=== PATIENT | male | born 1945 | race Caucasian/White ===

== ENCOUNTER → 2018-03-20 10:41 | Outpatient (CLI) | payer MEDICARE, SELFPAY ==
[2018-03-20 12:30] LABS: PSA,Total- Diagnostic 4.82 ng/mL (0.0-4.0)
== END ==
PROVIDERS: Family Provider Internal Medicine; PCP Internal Medicine; Visit Provider Urology
DX: C61 Malignant neoplasm of prostate (principal)
CPT/HCPCS: 36415; 84153

== ENCOUNTER → 2018-09-19 10:58 | Outpatient (CLI) | payer MEDICARE, SELFPAY ==
[2018-09-19 12:06] LABS: PSA,Total- Diagnostic 5.15 ng/mL (0.0-4.0)
--- OUTSIDE RECORDS SUMMARY | 2018-12-21 19:50 | XMS RPT_ITS ---
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 Subjective Nathan Barraza was here for follow up. His blood pressure was elevated today. Lipids needed rechecked. Chronic pains were controlled. PAIN ASSESSMENT DOCUMENTATION TOOL (PADT TM) Analgesia 1. What was your pain level on average during the past week? 0 is no pain. 10 is as bad as it can be. 5 2. What was your pain level at its worst during the past week? 5 3. What percentage of your pain has been relieved during the past week? 80+% 4. Is the amount of pain relief you are now obtaining from your current pain reliever(s) enough to make a real difference in your life? Yes. 5. Query to clinician: Is patient 's pain relief clinically significant? Yes. Activities of Daily Living since the patient's last assessment 1. Physical functioning. same 2. Family relationships. same 3. Social relationships. same 4. Mood. same 5. Sleep patterns. same 6. Overall functioning. same Adverse Events 1. Is patient experiencing any side effects from current pain reliever? no a) Nausea None b) Vomiting None c) Constipation None d) Itching None e) Mental cloudiness None f) Sweating None g) Fatigue None h) Drowsiness None i) Other __ 2. Patient's overall severity of side effects? None Potential Aberrant Drug Related Behavior: no Specify: __ Assessment: Is your overall impression that this patient is benefiting (benefits outweigh side effects) from opioid therapy? Yes. Plan: Continue present regimen. Yes. Reviewed risks. Adjust dose of present analgesic. no Switch analgesic. no Add/adjust concomitant therapy.no Discontinue/taper off opioid therapy. Discussed. We agreed to continue. Comments: __ Copyright [employer] c2003 All rights reserved. ACTIVE PROBLEM LIST Essential Hypertension Hyperlipidemia Actinic Keratosis Malignant Neoplasm of Rectum (Hcc) Bph With Obstruction/Lower Urinary Tract Symptoms Malignant Neoplasm of Prostate (Hcc) Anal Pain Esophagitis, Unspecified Chronic Pain Chronic Diarrhea Elevated Prostate Specific Antigen (Psa) Pain in Right Hip Review of Systems Constitutional: Negative. Respiratory: Negative. Cardiovascular: Negative. Gastrointestinal: Negative. Genitourinary: Negative. Objective BP 155/77 (BP Site: Left Arm, BP Position: Sitting, BP Cuff Size: Regular Adult) Pulse 72 Temp 36.2 ?C (97.1 ?F) (Left Tympanic) Resp 12 Wt 71.7 kg (158 lb) BMI 25.12 kg/m? Physical Exam Constitutional: No distress. Cardiovascular: Normal heart sounds. Pulmonary/Chest: Breath sounds normal. Abdominal: Soft. Musculoskeletal: Lumbar back: He exhibits decreased range of motion and tenderness. Skin: He is not diaphoretic. Assessment and Plan 1. Other chronic pain - ICD9: 338.29, ICD10: G89.29 Refilled. - TRAMADOL 50 MG TABLET 2. Pain in right hip - ICD9: 719.45, ICD10: M25.551 - TRAMADOL 50 MG TABLET 3. Anal pain - ICD9: 569.42, ICD10: K62.89 Refilled. - TRAMADOL 50 MG TABLET 4. Essential hypertension - ICD9: 401.9, ICD10: I10 - suboptimal control - Continue current medication(s) - Recheck in 2 weeks, sooner should new symptoms or problems arise. - Reviewed risks of HTN and principles of treatment - Goal of BP <130/80 - HYDROCHLOROTHIAZIDE 25 MG TABLET - AMLODIPINE 10 MG TABLET 5. Hyperlipidemia, unspecified hyperlipidemia type - ICD9: 272.4, ICD10: E78.5 - to be determined upon return of lab results - Continue current medication. - ATORVASTATIN 10 MG TABLET Joel Smith MD CNOV Observed: 10/19/2018 Status: COMPLETED Source: [place] 3:40 PM [facility] REPOSITORY Office Visit (INTMWS) NATHAN BARRAZA ([id number]) 1945 M Date Time Provider Department 10/19/18 3:40 PM JOEL SMITH INTMWS During your visit today, we recorded the following information about you: Temperature Pulse Respiration Blood pressure 97.1 degrees 72/minute 12/minute 155/77 Weight 71.7 kg Joel Smith MD 10/19/2018 4:50 PM Signed This note was created using NoteWriter. Subjective Nathan Barraza was here for follow up. His blood pressure was elevated today. Lipids needed rechecked. Chronic pains were controlled. PAIN ASSESSMENT DOCUMENTATION TOOL (PADT TM) Analgesia 1. What was your pain level on average during the past week? 0 is no pain. 10 is as bad as it can be. 5 2. What was your pain level at its worst during the past week? 5 3. What percentage of your pain has been relieved during the past week? 80+% 4. Is the amount of pain relief you are now obtaining from your current pain reliever(s) enough to make a real difference in your life? Yes. 5. Query to clinician: Is patient 's pain relief clinically significant? Yes. Activities of Daily Living since the patient's last assessment 1. Physical functioning. same 2. Family relationships. same 3. Social relationships. same 4. Mood. same 5. Sleep patterns. same 6. Overall functioning. same Adverse Events 1. Is patient experiencing any side effects from current pain reliever? no a) Nausea None b) Vomiting None c) Constipation None d) Itching None e) Mental cloudiness None f) Sweating None g) Fatigue None h) Drowsiness None i) Other __ 2. Patient's overall severity of side effects? None Potential Aberrant Drug Related Behavior: no Specify: __ Assessment: Is your overall impression that this patient is benefiting (benefits outweigh side effects) from opioid therapy? Yes. Plan: Continue present regimen. Yes. Reviewed risks. Adjust dose of present analgesic. no Switch analgesic. no Add/adjust concomitant therapy.no Discontinue/taper off opioid therapy. Discussed. We agreed to continue. Comments: __ Copyright [employer] c2003 All rights reserved. ACTIVE PROBLEM LIST Essential Hypertension Hyperlipidemia Actinic Keratosis Malignant Neoplasm of Rectum (Hcc) Bph With Obstruction/Lower Urinary Tract Symptoms Malignant Neoplasm of Prostate (Hcc) Anal Pain Esophagitis, Unspecified Chronic Pain Chronic Diarrhea Elevated Prostate Specific Antigen (Psa) Pain in Right Hip Review of Systems Constitutional: Negative. Respiratory: Negative. Cardiovascular: Negative. Gastrointestinal: Negative. Genitourinary: Negative. Objective BP 155/77 (BP Site: Left Arm, BP Position: Sitting, BP Cuff Size: Regular Adult) Pulse 72 Temp 36.2 ?C (97.1 ?F) (Left Tympanic) Resp 12 Wt 71.7 kg (158 lb) BMI 25.12 kg/m? Physical Exam Constitutional: No distress. Cardiovascular: Normal heart sounds. Pulmonary/Chest: Breath sounds normal. Abdominal: Soft. Musculoskeletal: Lumbar back: He exhibits decreased range of motion and tenderness. Skin: He is not diaphoretic. Assessment and Plan 1. Other chronic pain - ICD9: 338.29, ICD10: G89.29 Refilled. - TRAMADOL 50 MG TABLET 2. Pain in right hip - ICD9: 719.45, ICD10: M25.551 - TRAMADOL 50 MG TABLET 3. Anal pain - ICD9: 569.42, ICD10: K62.89 Refilled. - TRAMADOL 50 MG TABLET 4. Essential hypertension - ICD9: 401.9, ICD10: I10 - suboptimal control - Continue current medication(s) - Recheck in 2 weeks, sooner should new symptoms or problems arise. - Reviewed risks of HTN and principles of treatment - Goal of BP <130/80 - HYDROCHLOROTHIAZIDE 25 MG TABLET - AMLODIPINE 10 MG TABLET 5. Hyperlipidemia, unspecified hyperlipidemia type - ICD9: 272.4, ICD10: E78.5 - to be determined upon return of lab results - Continue current medication. - ATORVASTATIN 10 MG TABLET Joel Smith MD Referring Provider: SELF [200] Allergies As of Date: 10/19/2018 (No Known Allergies) Date Reviewed: 10/19/2018 Reviewed by: Jacquelyn Ocampo LPN - Fully Assessed Reason for Visit: F/U 6 Month [444] Visit Diagnoses:Other chronic pain [G89.29] Pain in right hip [M25.551] Anal pain [K62.89] Essential hypertension [I10] Hyperlipidemia, unspecified hyperlipidemia type [E78.5] Order(s):traMADol (ULTRAM) 50 mg tabletTake 1 tablet by mouth twice daily as needed for Pain for up to 90 days.Disp: 60 tabletRfl: 2 hydroCHLOROthiazide (HYDRODIURIL, ESIDRIX) 25 mg tabletTake 1 tablet by mouth once daily.Disp: 90 tabletRfl: 1 amLODIPine (NORVASC) 10 mg tabletTake 1 tablet by mouth once daily.Disp: 90 tabletRfl: 1 atorvastatin (LIPITOR) 10 mg tabletTake 1 tablet by mouth daily at bedtime. For cholesterol.Disp: 90 tabletRfl: 1 Prescriptions as of 10/19/2018 Sig: TRAMADOL 50 MG TABLET Take 1 tablet by mouth twice * HYDROCHLOROTHIAZIDE 25 MG TAB* Take 1 tablet by mouth once d* AMLODIPINE 10 MG TABLET Take 1 tablet by mouth once d* ATORVASTATIN 10 MG TABLET Take 1 tablet by mouth daily * Problem List As Of Date 10/19/2018 Noted Resolved Essential hypertension [I10] Hyperlipidemia [E78.5] Elevated prostate specific antigen (PSA) [R97.2* 10/16/2010 Personal history of other malignant neoplasm of*INVALID FOR*03/26/2011 SKIN TAGS AXILLARY [Q82.8] INVALID FOR*03/26/2011 PROSTATITIS RECURRENT [N41.9] INVALID FOR*03/26/2011 HYPERGLYCEMIA [R79.89] INVALID FOR*02/07/2014 OVERWEIGHT [E66.9] INVALID FOR*03/26/2011 Unspecified hypertrophic and atrophic condition*INVALID FOR*03/26/2011 SOLAR LENTIGENES///DYSCHROMIA OTHER [L81.9] INVALID FOR*03/26/2011 Actinic keratosis [L57.0] INVALID FOR* Actinic keratosis [L57.0] INVALID FOR*03/26/2011 Blood in stool [K92.1] INVALID FOR*10/16/2010 Colon polyps [K63.5] INVALID FOR*10/16/2010 Rectal cancer [C20] INVALID FOR*10/16/2010 Diverticulosis of colon [K57.30] INVALID FOR*03/26/2011 Benign neoplasm of colon [D12.6] INVALID FOR*10/16/2010 Malignant neoplasm of rectum [C20] INVALID FOR* More... Diverticulosis of colon (without mention of hem*INVALID FOR*10/16/2010 Retention of urine, unspecified [R33.9] INVALID FOR*03/26/2011 FB bladder/urethra [T19.1XXA, T19.0XXA] INVALID FOR*12/07/2012 BPH with obstruction/lower urinary tract sympto*INVALID FOR* UTI (lower urinary tract infection) [N39.0] INVALID FOR*03/26/2011 Malignant neoplasm of prostate (HCC) [C61] INVALID FOR* More... Anal pain [K62.89] INVALID FOR* Acute gastritis without mention of hemorrhage [*INVALID FOR*02/07/2014 Esophagitis, unspecified [K20.9] INVALID FOR* Loss of weight [R63.4] INVALID FOR*12/07/2012 Need for prophylactic vaccination with combined*INVALID FOR*12/07/2012 Chronic pain [G89.29] INVALID FOR* Abscess of back, except buttock [L02.212] INVALID FOR*05/06/2016 Chronic diarrhea [K52.9] INVALID FOR* History of rectal cancer [Z85.048] INVALID FOR*12/17/2015 Change in bowel habits [R19.4] INVALID FOR*12/17/2015 Urinary frequency [R35.0] INVALID FOR*10/11/2017 Urinary tract infection without hematuria [N39.*INVALID FOR*10/11/2017 Elevated prostate specific antigen (PSA) [R97.2*INVALID FOR* Pain in right hip [M25.551] INVALID FOR* Prescriptions ordered this encounter Disp Refills Start End TRAMADOL 50 MG TABLET 60 t* 2 10/19/2018 01/17/2019 Class: Print RX Route: ORAL Sig: Take 1 tablet by mouth twice daily as needed for Pain for up to 90 days. HYDROCHLOROTHIAZIDE 25 MG TABLET 90 t* 1 10/19/2018 Route: ORAL Sig: Take 1 tablet by mouth once daily. AMLODIPINE 10 MG TABLET 90 t* 1 10/19/2018 Route: ORAL Sig: Take 1 tablet by mouth once daily. ATORVASTATIN 10 MG TABLET 90 t* 1 10/19/2018 Route: ORAL Sig: Take 1 tablet by mouth daily at bedtime. For cholesterol. Medications Discontinued During This Encounter traMADol (ULTRAM) 50 mg tablet 60 t* 2 07/26/2018 10/19/2018 Class: Call Rx Route: ORAL Sig: Take 1 tablet by mouth twice daily as needed for Pain for up to 90 days. Disc: Reason for discontinue is not on file. hydroCHLOROthiazide (HYDRODIURIL, ES* 90 t* 1 04/13/2018 10/19/2018 Route: ORAL Sig: Take 1 tablet by mouth once daily. Disc: Reason for discontinue is not on file. amLODIPine (NORVASC) 10 mg tablet 90 t* 1 04/13/2018 10/19/2018 Route: ORAL Sig: Take 1 tablet by mouth once daily. Disc: Reason for discontinue is not on file. atorvastatin (LIPITOR) 10 mg tablet 90 t* 1 04/13/2018 10/19/2018 Route: ORAL Sig: Take 1 tablet by mouth daily at bedtime. For cholesterol. Disc: Reason for discontinue is not on file. Disposition: Return in about 6 months (around 04/18/2019). Follow-up and Disposition History Recorded Encounter Status:Closed by JOEL SMITH MD on 10/19/18 PSA,TOTAL- DIAGNOSTIC Collected: 09/19/2018 Status: F Source: [place] 11:[address] [facility] REPOSITORY TYPE CODE TESTS RESULT OUT OF REFERENCE UNITS RANGE LAB [id number] 0.0-4.0 ng/mL PSA, High DIAGNOSTIC 5.15 Result Comment: This test was performed using the TPSA assay method for the [employer] chemistry system. Values obtained with different assay methods cannot be used interchangably. When changing PSA assays in the course of monitoring a patient, additional sequential testing should be carried out to confirm baseline values. Performed By: #### [id number] #### Meet [facility] [address] [place], [address] QUANT PAIN PANEL, Collected: 04/13/2018 Status: F Source: [place] UR 5:52 PM [facility] REPOSITORY TYPE CODE TESTS RESULT OUT OF REFERENCE UNITS RANGE LAB UQCANN <16 ng/mL <16 Cannabinoid, Urine Result Comment: Tetrahydrocannabinol carboxylic acid (THCA) is a metabolite of ijuwi-9-reohosdhqfwxquqepgaz which is the main active component of marijuana. LAB UQBNZL <24 ng/mL Benzoylecognine, Ur <24 Result Comment: Benzoylecognine is a metabolite of cocaine. LAB UQACMR <5 ng/mL 6-Acetylmorphine, Ur <5 Result Comment: 6-ANDRA (6-monoacetylmorphine, also known as 6-acetylmorphine) is a unique metabolite of heroin. Presence of 6-ANDRA indicates use of heroin. 6-ANDRA is further metabolized to morphine and absence of 6-ANDRA does not rule out the use of heroin. LAB UQAMPH <5 ng/mL Amphetamine, Urine <5 LAB UQMAMP <8 ng/mL Methamphetamine, Ur <8 LAB UQBUPR <20 ng/mL Buprenorphine, Ur <20 LAB UQNBUP <20 ng/mL Norbuprenorphine, Ur <20 Result Comment: Norbuprenorphine is the primary active metabolite of buprenorphine. LAB UQMTHD <16 ng/mL Methadone, Urine <16 LAB UQEDDP <6 ng/mL EDDP, Urine <6 Result Comment: EDDP is a metabolite of methadone. LAB UQTRAM <25 ng/mL High Tramadol, Urine >5208 Result Comment: Presence of tramadol indicates use of a tramadol containing drug (Ultram). Tramadol is metabolized to O-Desmethyltramadol. LAB UQDTRM <20 ng/mL Desmethyltramadol,Ur High >5000 Result Comment: O-Desmethyltramadol is a metabolite of tramadol and its presence indicates use of a tramadol containing drug (Ultram). LAB UQFNTL <6 ng/mL Fentanyl, Urine <6 LAB UQNFTL <6 ng/mL Norfentanyl, Urine <6 Result Comment: Norfentanyl is a metabolite of fentanyl. LAB UQCODE <11 ng/mL Codeine, Urine <11 LAB UQMORP <10 ng/mL Morphine, Urine <10 Result Comment: Morphine is a metabolite of codeine and heroin. LAB UQDCDN <5 ng/mL Dihydrocodeine, Ur <5 LAB UQHCOD <8 ng/mL Hydrocodone, Urine <8 Result Comment: Hydrocodone is a metabolite of dihydrocodeine. LAB UQOXYC <5 ng/mL Oxycodone, Urine <5 LAB UQHMOR <5 ng/mL Hydromorphone, Ur <5 Result Comment: Hydromorphone is a metabolite of hydrocodone. LAB UQOXYM <5 ng/mL Oxymorphone, Urine <5 Result Comment: Oxymorphone is a metabolite of oxycodone. LAB UQCREA 46.8-314.5 mg/dL 85.7 Creatinine, Urine LAB UQPH 4.5-8.0 pH, 7.2 Urine LAB UQSPGR 1.002-1.030 Specific 1.014 [place],Ur LAB UQOXID <200 mg/L 66 Oxidants, Urine LAB SVNI01 <51 mg/L 82 High NITRITES,URINE LAB SVCH01 <50 mg/L <10 CHROMATE,URINE LAB SVSQ01 QUALITY,URINE Specimen quality results within acceptable limits. LAB UQNOTE Note This test is for Medical use only. Result Comment: This test was developed and its performance characteristics determined by [facility]'s [facility] ([facility]). It has not been cleared or approved by the FDA. [facility] is regulated under CLIA as qualified to perform high-complexity testing. This test is used for clinical purposes. It should not be regarded as investigational or for research. Performed By: #### UQNTPP #### [facility] [address] [place], [place] [address] PROGRESS Observed: 04/13/2018 Status: COMPLETED Source: [place] 4:58 PM [facility] REPOSITORY HNO ID: [id number] Author: Joel Smith Service: (none) Author Type: Physician Type: Progress Notes Filed: 04/13/2018 6:38 PM Note Text: This note was created using [employer]. Subjective Nathan Barraza is a 72 year old male here for follow up. His hypertension was controlled. Chronic pain was controlled, with tramadol taken routinely twice a day. He had no adverse effects. He was dealing with stressors from his 's recent diagnosis of a chronic illness. ACTIVE PROBLEM LIST Essential Hypertension Hyperlipidemia Actinic Keratosis Malignant Neoplasm of Rectum (Hcc) Bph With Obstruction/Lower Urinary Tract Symptoms Malignant Neoplasm of Prostate (Hcc) Anal Pain Esophagitis, Unspecified Chronic Pain Chronic Diarrhea Elevated Prostate Specific Antigen (Psa) Pain in Right Hip Current Outpatient Prescriptions: hydroCHLOROthiazide (HYDRODIURIL, ESIDRIX) 25 mg tablet Take 1 tablet by mouth once daily. amLODIPine (NORVASC) 10 mg tablet Take 1 tablet by mouth once daily. [START ON 04/27/2018] traMADol (ULTRAM) 50 mg tablet Take 1 tablet by mouth twice daily as needed for Pain for up to 90 days. atorvastatin (LIPITOR) 10 mg tablet Take 1 tablet by mouth daily at bedtime. For cholesterol. No current facility-administered medications for this visit. Review of Systems Constitutional: Negative. Respiratory: Negative. Cardiovascular: Negative. Gastrointestinal: Positive for abdominal pain and rectal pain. Genitourinary: Negative. Musculoskeletal: Positive for arthralgias. Neurological: Negative. Psychiatric/Behavioral: Negative. Objective BP 137/71 (BP Site: Left Arm, BP Position: Sitting, BP Cuff Size: Regular Adult) Pulse 76 Temp 36.2 ?C (97.1 ?F) (Left Tympanic) Resp 20 Wt 72.6 kg (160 lb) BMI 25.44 kg/m? Physical Exam Constitutional: No distress. Eyes: Conjunctivae are normal. No scleral icterus. Neck: No JVD present. Cardiovascular: Normal rate, regular rhythm and normal heart sounds. No murmur heard. Pulmonary/Chest: Breath sounds normal. Abdominal: There is no tenderness. Musculoskeletal: He exhibits no edema. Neurological: He is alert. Cholesterol, Total (mg/dL) Date Value 04/10/2018 212 04/04/2017 197 HDL Cholesterol (mg/dL) Date Value 04/10/2018 46 04/04/2017 50 LDL Cholesterol (mg/dL) Date Value 04/10/2018 143 04/04/2017 118 Triglyceride (mg/dL) Date Value 04/10/2018 116 04/04/2017 146 CMP: Glucose 110 04/10/2018 BUN 18 04/10/2018 Creatinine 1.02 04/10/2018 Sodium 140 04/10/2018 Potassium 3.6 04/10/2018 Chloride 101 04/10/2018 CO2 28 04/10/2018 Protein, Total 7.1 12/10/2015 Albumin 4.5 12/10/2015 Calcium 9.2 04/10/2018 Assessment and Plan 1. Essential hypertension - ICD9: 401.9, ICD10: I10 (primary diagnosis) - good control - HYDROCHLOROTHIAZIDE 25 MG TABLET - AMLODIPINE 10 MG TABLET 2. Other chronic pain - ICD9: 338.29, ICD10: G89.29 Reviewed. Discussed medication dosage, usage, goals of therapy, and side effects. - TRAMADOL 50 MG TABLET - PAIN PANEL, UR QUANT 3. Pain in right hip - ICD9: 719.45, ICD10: M25.551 See above. - TRAMADOL 50 MG TABLET - PAIN PANEL, UR QUANT 4. Anal pain - ICD9: 569.42, ICD10: K62.89 See above. - TRAMADOL 50 MG TABLET - PAIN PANEL, UR QUANT 5. Hyperlipidemia, unspecified hyperlipidemia type - ICD9: 272.4, ICD10: E78.5 I have used a decision aid to share decision making with the patient about interventions to reduce the risk of coronary events. We estimated the patient's 10-year of atherosclerotic events at 26% and discussed how this risk could be reduced with the use of statins to 16%. After considering the patient's unique circumstances and the pros and cons of the alternatives, we have decided to start statin medication. - ATORVASTATIN 10 MG TABLET - COMP METABOLIC PANEL - HGB A1C - LIPID PANEL BASIC 6. Hyperglycemia - ICD9: 790.29, ICD10: R73.9 Low carb, low fat diet reviewed. - HGB A1C Joel Smith MD CNOV Observed: 04/13/2018 Status: COMPLETED Source: [place] 3:40 PM [facility] REPOSITORY Office Visit (INTMWS) NATHAN BARRAZA ([id number]) 1945 M Date Time Provider Department 04/13/18 3:40 PM JOEL SMITH INTMWS During your visit today, we recorded the following information about you: Temperature Pulse Respiration Blood pressure 97.1 degrees 76/minute 20/minute 137/71 Weight 72.6 kg Joel Smith MD 04/13/2018 6:38 PM Signed This note was created using [employer]. Subjective Nathan Barraza is a 72 year old male here for follow up. His hypertension was controlled. Chronic pain was controlled, with tramadol taken routinely twice a day. He had no adverse effects. He was dealing with stressors from his 's recent diagnosis of a chronic illness. ACTIVE PROBLEM LIST Essential Hypertension Hyperlipidemia Actinic Keratosis Malignant Neoplasm of Rectum (Hcc) Bph With Obstruction/Lower Urinary Tract Symptoms Malignant Neoplasm of Prostate (Hcc) Anal Pain Esophagitis, Unspecified Chronic Pain Chronic Diarrhea Elevated Prostate Specific Antigen (Psa) Pain in Right Hip Current Outpatient Prescriptions: hydroCHLOROthiazide (HYDRODIURIL, ESIDRIX) 25 mg tablet Take 1 tablet by mouth once daily. amLODIPine (NORVASC) 10 mg tablet Take 1 tablet by mouth once daily. [START ON 04/27/2018] traMADol (ULTRAM) 50 mg tablet Take 1 tablet by mouth twice daily as needed for Pain for up to 90 days. atorvastatin (LIPITOR) 10 mg tablet Take 1 tablet by mouth daily at bedtime. For cholesterol. No current facility-administered medications for this visit. Review of Systems Constitutional: Negative. Respiratory: Negative. Cardiovascular: Negative. Gastrointestinal: Positive for abdominal pain and rectal pain. Genitourinary: Negative. Musculoskeletal: Positive for arthralgias. Neurological: Negative. Psychiatric/Behavioral: Negative. Objective BP 137/71 (BP Site: Left Arm, BP Position: Sitting, BP Cuff Size: Regular Adult) Pulse 76 Temp 36.2 ?C (97.1 ?F) (Left Tympanic) Resp 20 Wt 72.6 kg (160 lb) BMI 25.44 kg/m? Physical Exam Constitutional: No distress. Eyes: Conjunctivae are normal. No scleral icterus. Neck: No JVD present. Cardiovascular: Normal rate, regular rhythm and normal heart sounds. No murmur heard. Pulmonary/Chest: Breath sounds normal. Abdominal: There is no tenderness. Musculoskeletal: He exhibits no edema. Neurological: He is alert. Cholesterol, Total (mg/dL) Date Value 04/10/2018 212 04/04/2017 197 HDL Cholesterol (mg/dL) Date Value 04/10/2018 46 04/04/2017 50 LDL Cholesterol (mg/dL) Date Value 04/10/2018 143 04/04/2017 118 Triglyceride (mg/dL) Date Value 04/10/2018 116 04/04/2017 146 CMP: Glucose 110 04/10/2018 BUN 18 04/10/2018 Creatinine 1.02 04/10/2018 Sodium 140 04/10/2018 Potassium 3.6 04/10/2018 Chloride 101 04/10/2018 CO2 28 04/10/2018 Protein, Total 7.1 12/10/2015 Albumin 4.5 12/10/2015 Calcium 9.2 04/10/2018 Assessment and Plan 1. Essential hypertension - ICD9: 401.9, ICD10: I10 (primary diagnosis) - good control - HYDROCHLOROTHIAZIDE 25 MG TABLET - AMLODIPINE 10 MG TABLET 2. Other chronic pain - ICD9: 338.29, ICD10: G89.29 Reviewed. Discussed medication dosage, usage, goals of therapy, and side effects. - TRAMADOL 50 MG TABLET - PAIN PANEL, UR QUANT 3. Pain in right hip - ICD9: 719.45, ICD10: M25.551 See above. - TRAMADOL 50 MG TABLET - PAIN PANEL, UR QUANT 4. Anal pain - ICD9: 569.42, ICD10: K62.89 See above. - TRAMADOL 50 MG TABLET - PAIN PANEL, UR QUANT 5. Hyperlipidemia, unspecified hyperlipidemia type - ICD9: 272.4, ICD10: E78.5 I have used a decision aid to share decision making with the patient about interventions to reduce the risk of coronary events. We estimated the patient's 10-year of atherosclerotic events at 26% and discussed how this risk could be reduced with the use of statins to 16%. After considering the patient's unique circumstances and the pros and cons of the alternatives, we have decided to start statin medication. - ATORVASTATIN 10 MG TABLET - COMP METABOLIC PANEL - HGB A1C - LIPID PANEL BASIC 6. Hyperglycemia - ICD9: 790.29, ICD10: R73.9 Low carb, low fat diet reviewed. - HGB A1C Joel Smith MD Referring Provider: JOEL SMITH [[id number]] Allergies As of Date: 04/13/2018 (No Known Allergies) Date Reviewed: 04/13/2018 Reviewed by: Jacquelyn Ocampo LPN - Fully Assessed Reason for Visit: F/U 6 Month [444] Primary Visit Diagnosis:Essential hypertension [I10] Other Visit Diagnoses:Other chronic pain [G89.29] Pain in right hip [M25.551] Anal pain [K62.89] Hyperlipidemia, unspecified hyperlipidemia type [E78.5] Hyperglycemia [R73.9] Order(s):hydroCHLOROthiazide (HYDRODIURIL, ESIDRIX) 25 mg tabletTake 1 tablet by mouth once daily.Disp: 90 tabletRfl: 1 amLODIPine (NORVASC) 10 mg tabletTake 1 tablet by mouth once daily.Disp: 90 tabletRfl: 1 atorvastatin (LIPITOR) 10 mg tabletTake 1 tablet by mouth daily at bedtime. For cholesterol.Disp: 90 tabletRfl: 1 [START ON 04/27/2018] traMADol (ULTRAM) 50 mg tabletTake 1 tablet by mouth twice daily as needed for Pain for up to 90 days.Disp: 60 tabletRfl: 2 PAIN PANEL, UR QUANT [SQUQNTPP] Order #: [id number]. #:[id number] COMP METABOLIC PANEL [SQCMP] Order #: [id number] FUTURE HGB A1C [WLIEA7H] Order #: [id number] FUTURE LIPID PANEL BASIC [SQLIPB] Order #: [id number] FUTURE Prescriptions as of 04/13/2018 Sig: HYDROCHLOROTHIAZIDE 25 MG TAB* Take 1 tablet by mouth once d* AMLODIPINE 10 MG TABLET Take 1 tablet by mouth once d* TRAMADOL 50 MG TABLET Take 1 tablet by mouth twice * ATORVASTATIN 10 MG TABLET Take 1 tablet by mouth daily * Problem List As Of Date 04/13/2018 Noted Resolved Essential hypertension [I10] Hyperlipidemia [E78.5] Elevated prostate specific antigen (PSA) [R97.2* 10/16/2010 Personal history of other malignant neoplasm of*INVALID FOR*03/26/2011 SKIN TAGS AXILLARY [Q82.8] INVALID FOR*03/26/2011 PROSTATITIS RECURRENT [N41.9] INVALID FOR*03/26/2011 HYPERGLYCEMIA [R79.89] INVALID FOR*02/07/2014 OVERWEIGHT [E66.9] INVALID FOR*03/26/2011 Unspecified hypertrophic and atrophic condition*INVALID FOR*03/26/2011 SOLAR LENTIGENES///DYSCHROMIA OTHER [L81.9] INVALID FOR*03/26/2011 Actinic keratosis [L57.0] INVALID FOR* Actinic keratosis [L57.0] INVALID FOR*03/26/2011 Blood in stool [K92.1] INVALID FOR*10/16/2010 Colon polyps [K63.5] INVALID FOR*10/16/2010 Rectal cancer [C20] INVALID FOR*10/16/2010 Diverticulosis of colon [K57.30] INVALID FOR*03/26/2011 Benign neoplasm of colon [D12.6] INVALID FOR*10/16/2010 Malignant neoplasm of rectum [C20] INVALID FOR* More... Diverticulosis of colon (without mention of hem*INVALID FOR*10/16/2010 Retention of urine, unspecified [R33.9] INVALID FOR*03/26/2011 FB bladder/urethra [T19.1XXA, T19.0XXA] INVALID FOR*12/07/2012 BPH with obstruction/lower urinary tract sympto*INVALID FOR* UTI (lower urinary tract infection) [N39.0] INVALID FOR*03/26/2011 Malignant neoplasm of prostate (HCC) [C61] INVALID FOR* More... Anal pain [K62.89] INVALID FOR* Acute gastritis without mention of hemorrhage [*INVALID FOR*02/07/2014 Esophagitis, unspecified [K20.9] INVALID FOR* Loss of weight [R63.4] INVALID FOR*12/07/2012 Need for prophylactic vaccination with combined*INVALID FOR*12/07/2012 Chronic pain [G89.29] INVALID FOR* Abscess of back, except buttock [L02.212] INVALID FOR*05/06/2016 Chronic diarrhea [K52.9] INVALID FOR* History of rectal cancer [Z85.048] INVALID FOR*12/17/2015 Change in bowel habits [R19.4] INVALID FOR*12/17/2015 Urinary frequency [R35.0] INVALID FOR*10/11/2017 Urinary tract infection without hematuria [N39.*INVALID FOR*10/11/2017 Elevated prostate specific antigen (PSA) [R97.2*INVALID FOR* Pain in right hip [M25.551] INVALID FOR* Prescriptions ordered this encounter Disp Refills Start End HYDROCHLOROTHIAZIDE 25 MG TABLET 90 t* 1 04/13/2018 Route: ORAL Sig: Take 1 tablet by mouth once daily. AMLODIPINE 10 MG TABLET 90 t* 1 04/13/2018 Route: ORAL Sig: Take 1 tablet by mouth once daily. ATORVASTATIN 10 MG TABLET 90 t* 1 04/13/2018 Route: ORAL Sig: Take 1 tablet by mouth daily at bedtime. For cholesterol. TRAMADOL 50 MG TABLET 60 t* 2 04/27/2018 07/26/2018 Class: Print RX Route: ORAL Sig: Take 1 tablet by mouth twice daily as needed for Pain for up to 90 days. Medications Discontinued During This Encounter hydroCHLOROthiazide (HYDRODIURIL, ES* 90 t* 1 11/29/2017 04/13/2018 Route: ORAL Sig: Take 1 tablet by mouth once daily. Disc: Reason for discontinue is not on file. amLODIPine (NORVASC) 10 mg tablet 90 t* 1 11/29/2017 04/13/2018 Route: ORAL Sig: Take 1 tablet by mouth once daily. Disc: Reason for discontinue is not on file. traMADol (ULTRAM) 50 mg tablet 60 t* 2 01/28/2018 04/13/2018 Class: Print RX Route: ORAL Sig: Take 1 tablet by mouth twice daily as needed for Pain for up to 90 days. Disc: Reason for discontinue is not on file. Disposition: Return in about 6 months (around 10/14/2018). Follow-up and Disposition History Recorded Encounter Status:Closed by JOEL SMITH MD on 04/13/18 BASIC METABOLIC PANL Collected: 04/10/2018 Status: F Source: [place] 8:30 AM [facility] REPOSITORY TYPE CODE TESTS RESULT OUT OF REFERENCE UNITS RANGE LAB GLU 74-99 mg/dL High Glucose 110 Result Comment: The [place] [employer] (ADA) provides guidance for cutoff values for fasting glucose and random glucose. The ADA defines fasting as no caloric intake for at least 8 hours. Fas ting plasma glucose results between 100 to 125 mg/dL indicate increased risk for diabetes (prediabetes). Fasting plasma glucose results greater than or equal to 126 mg/dL meet the criteria for diagnosis of diabetes. In the absence of unequivocal hyperglycemia, results should be confirmed by repeat testing. In a patient with classic symptoms of hyperglycemia or hyperglycemic crisis, random plasma glucose results greater than or equal to 200 mg/dL meet the criteria for diagnosis of diabetes. Reference: Standards of Medical Care in Diabetes 2016, [place] [employer]. Diabetes Care. 2016.39(Suppl 1). LAB BUN 9-24 mg/dL BUN 18 LAB CRET 0.73-1.22 mg/dL Creatinine 1.02 LAB NA 136-144 mmol/L Sodium 140 LAB K 3.7-5.1 mmol/L Potassium Low 3.6 LAB CL 97-105 mmol/L Chloride 101 LAB CO2 22-30 mmol/L CO2 28 LAB AGAP 9-18 mmol/L Anion Gap 11 LAB CA 8.5-10.2 mg/dL Calcium, Total 9.2 LAB GFRAA eGFR- Amer. >60 LAB GFRNAA . eGFR-All Other Races >60 Result Comment: eGFR (Estimated GFR) Units of measure: mL/min/1.73 meters squared eGFR is derived from the reexpressed MDRD Study equation using the following parameters: serum creatinine, age, gender and race. The creatinine assay has been calibrated to be traceable to IDMS. An eGFR <60 mL/min/1.73m2 for >3 months is consistent with chronic kidney disease. Refer to KDOQI guidelines for clinical interpretation. In patients with unstable renal function, e.g. those with acute kidney injury, the eGFR may not accurately reflect actual GFR. Performed By: #### BMP, LIPB #### [facility] [address] [place], [place] [address] LIPID PANEL, BASIC Collected: 04/10/2018 Status: F Source: [place] 8:30 AM [facility] REPOSITORY TYPE CODE TESTS RESULT OUT OF REFERENCE UNITS RANGE LAB CHOL <200 mg/dL Cholesterol High 212 Result Comment: <200 mg/dL, Desirable 200-239 mg/dL, Borderline high >239 mg/dL, High LAB TRIGLY <150 mg/dL Triglyceride 116 Result Comment: <150 mg/dL, Normal 150-199 mg/dL, Borderline high 200-499 mg/dL, High >499 mg/dL, Very high LAB HDL >39 mg/dL HDL-Cholesterol 46 Result Comment: 40-59 mg/dL, Acceptable >59 mg/dL, High: Negative risk factor for coronary heart disease <40 mg/dL, Low: Positive risk factor for coronary heart disease LAB LDL <100 mg/dL LDL-Cholesterol High 143 Result Comment: <100 mg/dL, Optimal 100-129 mg/dL, Near optimal/above optimal 130-159 mg/dL, Borderline high 160-189 mg/dL, High >189 mg/dL, Very high Secondary prevention optimal LDL Cholesterol levels are recommended to be < 70 mg/dL LAB NONHDL <130 mg/dL Non HDL High Cholesterol 166 Result Comment: <130 mg/dL, Optimal 130-159 mg/dL, Near optimal/above optimal 160-189 mg/dL, Borderline high 190-219 mg/dL, High >219 mg/dL, Very high Secondary prevention optimal non HDL Cholesterol levels are recommended to be < 100 mg/dL LAB FT hrs Fasting Time 12 LAB VLDL <30 mg/dL VLDL Cholesterol 23 LAB TCHDL <5.10 TC:HDL Ratio 4.61 LAB LDLHDL <2.54 High LDL:HDL Ratio 3.11 Result Comment: Reference: 1. National Cholesterol Education Program ATP III Guideline At-A-Glance Quick Desk Reference: National Heart, Lung, and Blood [place]. National Institutes of Health. 2001: NIH Publication No. 01-3305. 2. An International Atherosclerosis Society position paper: global recommendations for the management of dyslipidemia: executive summary, Atherosclerosis. 2014: 232(2):410-413. Performed By: #### BMP, LIPB #### [facility] [address] [place], [place] [address] CNPTOUTREACH Observed: 03/28/2018 Status: COMPLETED Source: [place] 12:00 AM [facility] REPOSITORY Patient Outreach (FAMPST) NATHAN BARRAZA ([id number]) 1945 M Date Time Provider Department 03/28/18 JOEL SMITH [facility] During your visit today, we recorded the following information about you: Allergies As of Date: 03/28/2018 (No Known Allergies) Date Reviewed: 10/11/2017 Reviewed by: Jacquelyn Ocampo LPN - Fully Assessed Visit Diagnosis:Medication management [Z79.899] Order(s):BASIC METABOLIC PNL [SQBMP] Order #: [id number] FUTURE LIPID PANEL BASIC [SQLIPB] Order #: [id number] FUTURE Prescriptions as of 03/28/2018 Sig: X TRAMADOL 50 MG TABLET Take 1 tablet by mouth twice * X HYDROCHLOROTHIAZIDE 25 MG TAB* Take 1 tablet by mouth once d* X AMLODIPINE 10 MG TABLET Take 1 tablet by mouth once d* Problem List As Of Date 03/28/2018 Noted Resolved Essential hypertension [I10] Hyperlipidemia [E78.5] Elevated prostate specific antigen (PSA) [R97.2* 10/16/2010 Personal history of other malignant neoplasm of*INVALID FOR*03/26/2011 SKIN TAGS AXILLARY [Q82.8] INVALID FOR*03/26/2011 PROSTATITIS RECURRENT [N41.9] INVALID FOR*03/26/2011 HYPERGLYCEMIA [R79.89] INVALID FOR*02/07/2014 OVERWEIGHT [E66.9] INVALID FOR*03/26/2011 Unspecified hypertrophic and atrophic condition*INVALID FOR*03/26/2011 SOLAR LENTIGENES///DYSCHROMIA OTHER [L81.9] INVALID FOR*03/26/2011 Actinic keratosis [L57.0] INVALID FOR* Actinic keratosis [L57.0] INVALID FOR*03/26/2011 Blood in stool [K92.1] INVALID FOR*10/16/2010 Colon polyps [K63.5] INVALID FOR*10/16/2010 Rectal cancer [C20] INVALID FOR*10/16/2010 Diverticulosis of colon [K57.30] INVALID FOR*03/26/2011 Benign neoplasm of colon [D12.6] INVALID FOR*10/16/2010 Malignant neoplasm of rectum [C20] INVALID FOR* More... Diverticulosis of colon (without mention of hem*INVALID FOR*10/16/2010 Retention of urine, unspecified [R33.9] INVALID FOR*03/26/2011 FB bladder/urethra [T19.1XXA, T19.0XXA] INVALID FOR*12/07/2012 BPH with obstruction/lower urinary tract sympto*INVALID FOR* UTI (lower urinary tract infection) [N39.0] INVALID FOR*03/26/2011 Malignant neoplasm of prostate (HCC) [C61] INVALID FOR* More... Anal pain [K62.89] INVALID FOR* Acute gastritis without mention of hemorrhage [*INVALID FOR*02/07/2014 Esophagitis, unspecified [K20.9] INVALID FOR* Loss of weight [R63.4] INVALID FOR*12/07/2012 Need for prophylactic vaccination with combined*INVALID FOR*12/07/2012 Chronic pain [G89.29] INVALID FOR* Abscess of back, except buttock [L02.212] INVALID FOR*05/06/2016 Chronic diarrhea [K52.9] INVALID FOR* History of rectal cancer [Z85.048] INVALID FOR*12/17/2015 Change in bowel habits [R19.4] INVALID FOR*12/17/2015 Urinary frequency [R35.0] INVALID FOR*10/11/2017 Urinary tract infection without hematuria [N39.*INVALID FOR*10/11/2017 Elevated prostate specific antigen (PSA) [R97.2*INVALID FOR* Pain in right hip [M25.551] INVALID FOR* Encounter Status:Closed by EPIC, PRODUSER on 07/14/18 PSA,TOTAL- DIAGNOSTIC Collected: 03/20/2018 Status: F Source: [place] 10:[address] [facility] REPOSITORY TYPE CODE TESTS RESULT OUT OF REFERENCE UNITS RANGE LAB L501.9940 0.0-4.0 ng/mL PSA, High DIAGNOSTIC 4.82 Result Comment: This test was performed using the TPSA assay method for the [employer] chemistry system. Values obtained with different assay methods cannot be used interchangably. When changing PSA assays in the course of monitoring a patient, additional sequential testing should be carried out to confirm baseline values. Performed By: #### L501.9940 #### [facility] [address] [place], [address] OBSOLETE Observed: 10/31/2017 Status: COMPLETED Source: [place] 12:00 AM [facility] REPOSITORY Refill (INTMWS) NATHAN BARRAZA ([id number]) 1945 M Date Time Provider Department 10/31/17 JOEL SMITH During your visit today, we recorded the following information about you: Anamika Borges LPN 10/31/2017 11:18 AM Signed Patient's request for medication is as follows: Pending Prescriptions Disp Refills TRAMADOL 50 MG TABLET 60 tablet 2 Sig: Take 1 tablet by mouth twice daily as needed. MARY ANN Class: C-IV CHARLES: No Please approve the above prescription(s) to electronically send to pharmacy. Anamika Smith MD 11/02/2017 8:19 AM Signed Patient's request for medication is as follows: Signed Prescriptions Disp Refills traMADol (ULTRAM) 50 mg tablet 60 tablet 2 Sig: Take 1 tablet by mouth twice daily as needed for Pain for up to 90 days. MARY ANN Class: C-IV CHARLES: No Authorizing Provider: JOEL SMITH Prescription(s) printed as above. Please process accordingly. Monica Stanton KIAN 11/02/2017 8:40 AM Signed rx faxed to the pharmacy. Allergies As of Date: 10/31/2017 (No Known Allergies) Date Reviewed: 10/11/2017 Reviewed by: Jacquelyn Ocampo LPN - Fully Assessed Reason for Visit: Refill Request [94] Visit Diagnoses:Other chronic pain [G89.29] Pain in right hip [M25.551] Anal pain [K62.89] Order(s):traMADol (ULTRAM) 50 mg tabletTake 1 tablet by mouth twice daily as needed for Pain for up to 90 days.Disp: 60 tabletRfl: 2 Prescriptions as of 10/31/2017 Sig: TRAMADOL 50 MG TABLET Take 1 tablet by mouth twice * HYDROCHLOROTHIAZIDE 25 MG TAB* take 1 tablet by mouth once d* AMLODIPINE 10 MG TABLET take 1 tablet by mouth once d* Problem List As Of Date 10/31/2017 Noted Resolved Essential hypertension [I10] Hyperlipidemia [E78.5] Elevated prostate specific antigen (PSA) [R97.2* 10/16/2010 Personal history of other malignant neoplasm of*INVALID FOR*03/26/2011 SKIN TAGS AXILLARY [Q82.8] INVALID FOR*03/26/2011 PROSTATITIS RECURRENT [N41.9] INVALID FOR*03/26/2011 HYPERGLYCEMIA [R79.89] INVALID FOR*02/07/2014 OVERWEIGHT [E66.9] INVALID FOR*03/26/2011 Unspecified hypertrophic and atrophic condition*INVALID FOR*03/26/2011 SOLAR LENTIGENES///DYSCHROMIA OTHER [L81.9] INVALID FOR*03/26/2011 Actinic keratosis [L57.0] INVALID FOR* Actinic keratosis [L57.0] INVALID FOR*03/26/2011 Blood in stool [K92.1] INVALID FOR*10/16/2010 Colon polyps [K63.5] INVALID FOR*10/16/2010 Rectal cancer [C20] INVALID FOR*10/16/2010 Diverticulosis of colon [K57.30] INVALID FOR*03/26/2011 Benign neoplasm of colon [D12.6] INVALID FOR*10/16/2010 Malignant neoplasm of rectum [C20] INVALID FOR* More... Diverticulosis of colon (without mention of hem*INVALID FOR*10/16/2010 Retention of urine, unspecified [R33.9] INVALID FOR*03/26/2011 FB bladder/urethra [T19.1XXA, T19.0XXA] INVALID FOR*12/07/2012 BPH with obstruction/lower urinary tract sympto*INVALID FOR* UTI (lower urinary tract infection) [N39.0] INVALID FOR*03/26/2011 Malignant neoplasm of prostate (HCC) [C61] INVALID FOR* More... Anal pain [K62.89] INVALID FOR* Acute gastritis without mention of hemorrhage [*INVALID FOR*02/07/2014 Esophagitis, unspecified [K20.9] INVALID FOR* Loss of weight [R63.4] INVALID FOR*12/07/2012 Need for prophylactic vaccination with combined*INVALID FOR*12/07/2012 Chronic pain [G89.29] INVALID FOR* Abscess of back, except buttock [L02.212] INVALID FOR*05/06/2016 Chronic diarrhea [K52.9] INVALID FOR* History of rectal cancer [Z85.048] INVALID FOR*12/17/2015 Change in bowel habits [R19.4] INVALID FOR*12/17/2015 Urinary frequency [R35.0] INVALID FOR*10/11/2017 Urinary tract infection without hematuria [N39.*INVALID FOR*10/11/2017 Elevated prostate specific antigen (PSA) [R97.2*INVALID FOR* Pain in right hip [M25.551] INVALID FOR* Prescriptions ordered this encounter Disp Refills Start End TRAMADOL 50 MG TABLET 60 t* 2 11/02/2017 01/31/2018 Class: Print RX Route: ORAL Sig: Take 1 tablet by mouth twice daily as needed for Pain for up to 90 days. Medications Discontinued During This Encounter traMADol (ULTRAM) 50 mg tablet 28 t* 0 10/15/2016 11/02/2017 Class: Print RX Route: ORAL Sig: Take 1 tablet by mouth twice daily as needed for up to 14 days. Disc: Reason for discontinue is not on file. traMADol (ULTRAM) 50 mg tablet 42 t* 0 10/01/2016 11/02/2017 Class: Print RX Route: ORAL Sig: Take 1 tablet by mouth three times daily as needed for up to 14 days. Disc: Reason for discontinue is not on file. traMADol (ULTRAM) 50 mg tablet 120 * 2 07/06/2016 11/02/2017 Class: Print RX Route: ORAL Sig: Take 1 tablet by mouth four times daily as needed for Pain for up to 30 days. Disc: Reason for discontinue is not on file. traMADol (ULTRAM) 50 mg tablet 120 * 1 07/09/2015 11/02/2017 Class: Print RX Route: ORAL Sig: Take 1 tablet by mouth four times daily as needed for Pain for up to 30 days. Disc: Reason for discontinue is not on file. traMADol (ULTRAM) 50 mg tablet 120 * 1 04/17/2014 11/02/2017 Route: ORAL Sig: Take 1 tablet by mouth four times daily as needed for Pain for up to 30 days. Disc: Reason for discontinue is not on file. Cosign accepted by NADIA BENJAMIN MD[[id number]] on 04/25/2014 4:05 PM traMADol (ULTRAM) 50 mg tablet 60 t* 2 08/03/2017 11/02/2017 Class: Print RX Route: ORAL Sig: Take 1 tablet by mouth twice daily as needed. Disc: Reason for discontinue is not on file. Encounter Status:Closed by MONICA STANTON LPN on 11/02/17 ALLERGIES ALLERGIES DATE TYPE / CODE NAME / CODE REACTION SEVERITY SOURCE Drug NO KNOWN [facility] Class/60474 ALLERGIES Main [place] 1003(SNOMED Repository CT) ENCOUNTERS ENCOUNTERS ADMIT/DISCHARGE ACCOUNT ADMITTING ENCOUNTER LOCATION SOURCE NUMBER CLASS 10/19/2018/10/20/19 [id number] Ambulatory [address] Repository 09/19/2018 [id number] [facility]LAB Repository 04/13/2018/04/14/20 [id number] Ambulatory [address] Repository 04/10/2018/04/10/20 [id number] Ambulatory [address] Repository 03/20/2018 [id number] [facility]LAB Repository PAYERS PAYERS ENCOUNTER GUARANTOR PAYER SUBSCRIBER SOURCE 09/19/2018 NATHAN Escalante Primary NATHAN [id number] Insurance:MEDICARE JOHNSONDOB: [facility] [id number] Number: Repository [id number]: [phone] [id number] [phone] () Date:2018-09-19 09/19/2018 Secondary NOT GIVENUNK Meet Insurance:SELF PAY [facility] Number: Effective Repository Date:2018-09-19 03/20/2018 Nathan Escalante Primary Nathan Escalante [id number] Insurance:MEDICARE JohnsonDOB: [facility] [id number] Number: Repository [id number]: [phone] [id number] [phone] () Date:2018-03-20 03/20/2018 Secondary NOT GIVENUNK Meet Insurance:SELF PAY [facility] Number: Effective Repository Date:2018-03-20
== END ==
PROVIDERS: Family Provider Internal Medicine; PCP Internal Medicine; Referring Provider Urology; Visit Provider Urology
DX: C61 Malignant neoplasm of prostate (principal)
CPT/HCPCS: 36415; 84153

== ENCOUNTER → 2019-03-13 10:36 | Outpatient (CLI) | payer MEDICARE, SELFPAY ==
[2019-03-13 12:00] LABS: PSA,Total- Diagnostic 7.05 ng/mL (0.0-4.0)
== END ==
PROVIDERS: Family Provider Internal Medicine; PCP Internal Medicine; Referring Provider Urology; Visit Provider Urology
DX: C61 Malignant neoplasm of prostate (principal)
CPT/HCPCS: 36415; 84153

== ENCOUNTER → 2019-08-28 10:15 | Outpatient (CLI) | payer MEDICARE, SELFPAY ==
[2019-08-28 11:18] LABS: PSA,Total- Diagnostic 4.92 ng/mL (0.0-4.0)
== END ==
PROVIDERS: Family Provider Internal Medicine; PCP Internal Medicine; Referring Provider Urology; Visit Provider Urology
DX: C61 Malignant neoplasm of prostate (principal); R97.20 Elevated prostate specific antigen [PSA]
CPT/HCPCS: 36415; 84153

== ENCOUNTER → 2020-03-12 10:51 | Outpatient (CLI) | payer MEDICARE, SELFPAY | PROVIDERS: Family Provider Internal Medicine; PCP Internal Medicine; Referring Provider Urology; Visit Provider Urology | DX: N39.0 Urinary tract infection, site not specified (principal); R97.20 Elevated prostate specific antigen [PSA] | CPT/HCPCS: 36415; 84153 ==

== ENCOUNTER → 2020-10-07 10:24 | Outpatient (CLI) | payer MEDICARE, SELFPAY ==
[2020-10-07 12:01] LABS: PSA,Total - Annual Screen 3.38 ng/mL (0.00-4.00)
== END ==
PROVIDERS: PCP Internal Medicine; Referring Provider Urology; Visit Provider Urology
DX: R97.20 Elevated prostate specific antigen [PSA] (principal); Z12.5 Encounter for screening for malignant neoplasm of prostate
CPT/HCPCS: 36415; 84153; G0103

== ENCOUNTER → 2021-04-24 10:07 | Outpatient (CLI) | payer MEDICARE, SELFPAY ==
[2021-04-24 11:56] LABS: PSA,Total- Diagnostic 3.22 ng/mL (0.0-4.0)
== END ==
PROVIDERS: PCP Internal Medicine; Referring Provider Urology; Visit Provider Urology
DX: C61 Malignant neoplasm of prostate (principal)
CPT/HCPCS: 36415; 84153

== ENCOUNTER 2022-01-18 11:40 | Outpatient (CLI) | payer MEDICARE, SELFPAY ==
[2022-01-19 08:20] LABS: PSA,Total- Diagnostic 4.11 ng/mL (0.0-4.0)
== END 2022-01-18 23:59 | disposition home or self-care (01) ==
LOC: LABSPEC 11:42 → LAB 01-19 06:24
PROVIDERS: PCP Internal Medicine; Visit Provider Urology
DX: R97.20 Elevated prostate specific antigen [PSA] (principal); Z12.5 Encounter for screening for malignant neoplasm of prostate
CPT/HCPCS: 36415; 84153; G0103

== ENCOUNTER → 2024-05-02 | Outpatient (CLI) | payer MEDICARE, SELFPAY ==
[2024-05-02 11:00] LABS: PSA,Total- Diagnostic 6.85 ng/mL (0.0-4.0)
== END | disposition home or self-care (01) ==
LOC: LAB 10:16
PROVIDERS: PCP Internal Medicine; Referring Provider Urology; Visit Provider Urology
DX: R97.20 Elevated prostate specific antigen [PSA] (principal)
CPT/HCPCS: 36415; 84153

== ENCOUNTER → 2025-07-25 | Outpatient (CLI) | payer MEDICARE, SELFPAY ==
[2025-07-25 17:26] LABS: PSA,Total- Diagnostic 11.80 ng/mL (0.00-4.00)
== END | disposition home or self-care (01) ==
LOC: LAB 15:51
PROVIDERS: PCP Internal Medicine; Referring Provider Urology; Visit Provider Urology
DX: C61 Malignant neoplasm of prostate (principal)
CPT/HCPCS: 36415; 84153

== ENCOUNTER → 2025-08-08 | Outpatient (CLI) | payer MEDICARE, SELFPAY ==
[2025-08-09 14:09] LABS: PSA, Free 1.39 ng/mL; PSA, Free % 11.6 % (.); PSA, Total Ultrasensitive 12.000 ng/mL (0.000-4.000)
== END | disposition home or self-care (01) ==
LOC: LAB 08:22
PROVIDERS: PCP Internal Medicine; Referring Provider Urology; Visit Provider Urology
DX: R97.20 Elevated prostate specific antigen [PSA] (principal)
CPT/HCPCS: 36415; 84153; 84154

== ENCOUNTER → 2025-08-26 | Outpatient (CLI) | payer MEDICARE, SELFPAY ==
--- NOTE | 2025-08-26 10:44 | MRI_ITS ---
EXAM: PELVIS W/WO CONTRAST 08/26/2025 CLINICAL HISTORY: ELEVATED PSA LEVELS. TECHNIQUE: Procedure Code: [id number] Modality: MR Procedure: PELVIS W/WO CONTRAST Multiplanar and multisequence images were obtained intravenous gadolinium contrast. CONTRAST: Clariscan VOLUME: 15 mL COMPARISON: No prior studies available for comparison FINDINGS: Image quality:Diagnostic PSA:12ng/mL Prostate size: 2.7 x 4.5 x 3.5cms Prostate volume: 20.4mL PSA density:0.586 ng/mL??? Prostate Transition zone: PI-RADS 2 findings. Benign prostatic hyperplasia with heterogeneous appearance of the gland. *Lesion: Indistinct 1.2 cm nodule fairly well encapsulated within the right transitional zone anterior and posterior likely an atypical nodule. *T2 score: 2; mostly encapsulated nodule or a homogeneous circumscribed nodule without encapsulation, or a homogeneous mildly hypointense area between nodules. *DWI score: 4; focal, marked hypointensity on ADC and marked hyperintensity on high b-value DWI; <1.5 cm. *DCE: Positive. *Overall PI-RADS: PI-RADS 3. *Extracapsular extension:No gross extracapsular extension. Peripheral Zone: Background changes of likely prostatitis (PI-RADS 2). *Lesion : None. *T2 score: 2; linear or wedge-shaped hypointensity or diffuse mild hypointensity, usually indistinct margin. *DWI score: 1; no abnormality on ADC or high b-value DWI. *DCE: N/A. *Overall PI-RADS: PI-RADS 2. *Extracapsular extension:No gross extracapsular extension. Neurovascular bundles: Unremarkable. Seminal vesicles: Unremarkable. Bladder: Underdistended and suboptimally evaluated, grossly unremarkable. Lymph nodes: Unremarkable. Bones: No destructive or frankly suspicious bony lesions identified on nondedicated evaluation. Heterogeneous marrow signal. No acute fracture or destructive lesion. Vertebral hemangioma present at L4. Other: Diverticulosis without active diverticulitis.. MRI/Pelvis W/WO Contrast IMPRESSION: Benign prostatic hyperplasia. Fairly well-circumscribed nodule in the right tr ansitional zone anteriorly and posteriorly likely an atypical nodule. PI-RADS 3: intermediate (the presence of clinically significant cancer is equiv ocal). Follow-up evaluation recommended if biopsy is not considered. Reading Location: [id number]
== END | disposition home or self-care (01) ==
PROVIDERS: PCP Internal Medicine; Referring Provider Urology; Visit Provider Urology
DX: R97.20 Elevated prostate specific antigen [PSA] (principal)
CPT/HCPCS: 72197; A9575; A4216